=== PATIENT | male | born 1965 | race Caucasian/White ===

== ENCOUNTER 2018-08-09 00:13 | Observation (INO) | payer SELFPAY ==
[2018-08-09] MEDS ORDERED: NS 1,000 ML IV ONE ×2 (00:24→01:22)
--- NOTE | 2018-08-09 00:24 | EDPHY ---
H & P Stated Complaint: lower back pain since AM, chest pain Time Seen by Provider: 08/09/18 00:24 HPI/ROS: HPI CHIEF COMPLAINT: Low back pain. HISTORY OF PRESENT ILLNESS: Patient is a 52-year-old male, history of lymphoma currently undergoing treatment in [place]. He lives in [place]. He last got chemotherapy on Thursday. He flew to [place] on . He is here on a ski trip with his son. There skiing up and when her park. Earlier this morning he developed low back pain the pain is gotten worse he describes it low back inside. Not worse with movement. He describes pain across both the CVA regions and his low back. No midline back pain. Patient denies fever. Denies vomiting. Does endorse some chest tightness. He states that is been normal for him since chemotherapy. He denies vomiting. Patient denies diarrhea. Patient denies any significant abdominal pain. His main complaint is low back pain. Past Medical History: Lymphoma on chemotherapy Past Surgical History: No recent surgery. History of knee surgeries. Social History: Resides in [place]. Getting chemotherapy at [place] Family History: Noncontributory ROS REVIEW OF SYSTEMS: 10 Systems were reviewed and negative with the exception of the elements mentioned in the history of present illness. Exam Constitutional flushed appearing, otherwise nontoxic, somewhat pale, triage nursing summary reviewed, vital signs reviewed, awake/alert. Eyes normal conjunctivae and sclera, EOMI, PERRLA. HENT normal inspection, atraumatic, moist mucus membranes, no epistaxis, neck supple/ no meningismus, no raccoon eyes. Respiratory clear to auscultation bilaterally, normal breath sounds, no respiratory distress, no wheezing. Cardiovascular rate normal, regular rhythm, no murmur, no edema, distal pulses normal. Gastrointestinal soft, non-tender, no rebound, no guarding, normal bowel sounds, no distension, no pulsatile mass. Genitourinary bilateral CVA tenderness on exam. Musculoskeletal no midline vertebral tenderness, full range of motion, no calf swelling, no tenderness of extremities, no meningismus, good pulses, neurovascularly intact. Skin pink, warm, & dry, no rash, skin atraumatic. Neurologic awake, alert and oriented x 3, AAOx3, moves all 4 extremities equally, motor intact, sensory intact, CN II-XII intact, normal cerebellar, normal vision, normal speech. Psychiatric normal mood/affect. Heme/Lymph/Immune no lymphadenopathy. Differential Diagnosis: Differential diagnosis includes but is not limited to and in no particular order: Bowel obstruction, appendicitis, gallbladder disease, diverticulitis, colitis, enteritis, perforated viscus, gastritis, GERD , esophagitis, urinary tract infection, pyelonephritis, kidney stones, Differential diagnosis includes but is not limited to: ACS, atypical chest pain , pneumothorax, pneumonia, pulmonary embolism, aortic dissection, congestive heart failure, tumor, musculoskeletal pain, esophageal pain, GERD, peptic ulcer disease, pancreatitis Medical Decision Making: Plan for this patient IV establishment IV fluid bolus , IV Dilaudid 1 mg for pain control, basic blood work, CT scan abdomen pelvis with IV contrast, check UA. Re-evaluation: EKG interpretation by me on record in [facility] [employer] system. Impression time of EKG 0029, sinus rhythm rate of 89, no signs of acute ischemia. Patient's back exam unremarkable. Mild CVA tenderness bilaterally, however no midline back pain. No fever. No saddle anesthesia, no signs of cauda equina, no leg weakness. Troponin 0.00 CT scan abdomen pelvis with IV contrast faxed to me by [facility] negative for acute abdominal pathology. Nothing explained the patient's back pain. Labs are reassuring. Urinalysis unremarkable Plan for hospital admission for observation overnight given his lymphoma, [place] from [place], had ongoing back pain. Patient agrees for admission Dr. Palacios accepts. Source: Patient - Personal History Current Tetanus/Diphtheria Vaccine: Unsure - Medical/Surgical History Hx Asthma: No Hx Chronic Respiratory Disease: No Hx Diabetes: No Hx Cardiac Disease: No Hx Renal Disease: No Hx Cirrhosis: No Hx Alcoholism: No Hx HIV/AIDS: No Hx Splenectomy or Spleen Trauma: No Other PMH: hodgkins lymphoma, ABVD tx in [place] - Social History Smoking Status: Never smoked Constitutional: Initial Vital Signs Temperature (C) 36.8 C 08/09/18 00:15 Heart Rate 100 08/09/18 00:15 Respiratory Rate 20 08/09/18 00:15 Blood Pressure 146/94 H 08/09/18 00:15 O2 Sat (%) 94 08/09/18 00:15 O2 Delivery Mode Room Air O2 (L/minute) 2 Allergies/Adverse Reactions: No Known Allergies Allergy (Verified 08/09/18 08:55) Home Medications: Medication Instructions Recorded Aspirin [Aspirin 81mg (*)] 81 mg PO DAILY 08/09/18 Metoclopramide [Reglan 10 mg tab 10 mg PO BID PRN 08/09/18 (*)] Polyethylene Glycol 3350 [Miralax 17 gm PO DAILY PRN #30 pkt 08/09/18 17 gm (*)] Tears/Dextran 70/Hypromellose 1 drop EACHEYE Q2 PRN 08/09/18 [Natural Balance Tears (*)] Medical Decision Making - Data Points Laboratory Results: Laboratory Results 08/09/18 00:30 08/09/18 00:30 Medications Given: Discontinued Medications Hydrocodone Bitart/Acetaminophen (Lockhart 5/325) 1 - 2 tab PO Q4HRS PRN PRN Reason: Pain, Moderate Able to Take PO Stop: 08/19/18 03:42 Last Admin: 08/09/18 05:23 Dose: 1 tab Hydromorphone HCl (Dilaudid) 1 mg IVP EDNOW ONE Stop: 08/09/18 00:38 Last Admin: 08/09/18 00:43 Dose: 1 mg Hydromorphone HCl (Dilaudid) 1 mg IVP EDNOW ONE Stop: 08/09/18 02:52 Last Admin: 08/09/18 02:55 Dose: 1 mg Sodium Chloride (Ns) 1,000 mls @ 0 mls/hr IV EDNOW ONE; Wide Open PRN Reason: Protocol Stop: 08/09/18 00:25 Last Admin: 08/09/18 00:41 Dose: 1,000 mls Sodium Chloride (Ns) 1,000 mls @ 0 mls/hr IV ONCE ONE PRN Reason: Wide Open Stop: 08/09/18 01:23 Last Admin: 08/09/18 01:38 Dose: 1,000 mls Sodium Chloride (Ns) 1,000 mls @ 100 mls/hr IV CONT GUDELIA Stop: 08/09/18 13:59 Last Admin: 08/09/18 04:28 Dose: 1,000 mls Lactulose (Cephulac) 20 gm PO TID PRN; Protocol PRN Reason: Constipation Stop: 02/05/19 05:43 Last Admin: 08/09/18 11:55 Dose: 20 gm Senna/Docusate Sodium (Senokot-S) 1 - 2 tab PO BID GUDELIA PRN Reason: Protocol Stop: 02/05/19 08:59 Last Admin: 08/09/18 11:56 Dose: 2 tab Point of Care Test Results: Chemistry 08/09/18 00:37 POC Troponin I 0.00 ng/mL ng/mL (0.00-0.08) Departure - Departure Disposition: [facility] Inpatient Acute Clinical Impression: Back pain Qualifiers: Back pain location: low back pain Chronicity: acute Back pain laterality: bilateral Sciatica presence: without sciatica Qualified Code(s): M54.5 - Low back pain Lymphoma Qualifiers: Lymphoma type: unspecified type Lymphoma site: unspecified region Qualified Code(s): C85.90 - Non-Hodgkin lymphoma, unspecified, unspecified site Condition: Fair
[2018-08-09] MEDS ORDERED: HYDROmorphONE/DILAUDID 2 MG/ML INJ IVP ONE ×2 (00:37→02:51)
[2018-08-09] MEDS ORDERED: IOHEXOL 300 mgI/ML (OMNIPAQUE) 150 ML BTL IV ONE (00:41)
[2018-08-09 00:53] LABS: INR 0.91 (0.83-1.16); PROTIME(PATIENT) 12.5 SEC (12.0-15.0)
[2018-08-09 01:06] LABS: PLATELET COUNT 139 10^3/uL (150-400)
[2018-08-09] MEDS ORDERED: ACETAMINOPHEN 325 MG TAB PO PRN (03:43)
[2018-08-09] MEDS ORDERED: ONDANSETRON 4 MG/2 ML VIAL IVP PRN (03:43)
[2018-08-09] MEDS ORDERED: HYDROCODONE/APAP 5/325 TAB PO PRN (03:43)
[2018-08-09] MEDS ORDERED: LORazepam 0.5 MG TAB PO PRN (03:43)
[2018-08-09] MEDS ORDERED: ONDANSETRON DISINTEGRATING 4 MG TAB PO PRN (03:43)
[2018-08-09] MEDS ORDERED: NS 1,000 ML IV SCH (04:00)
[2018-08-09] MEDS ORDERED: BISACODYL 10 MG SUPP PR PRN (05:44)
[2018-08-09] MEDS ORDERED: MAGNESIUM HYDROXIDE 30 ML UDCUP PO PRN (05:44)
[2018-08-09] MEDS ORDERED: MAG HYDROX/AL HYDROX/SIMETH 30 ML UDCUP PO PRN (05:44)
[2018-08-09] MEDS ORDERED: POLYETHYLENE GLYCOL 3350 17 GM PKT PO PRN (05:44)
[2018-08-09] MEDS: LACTULOSE 20 GM/30 ML UDCUP PO PRN ×2 (06:03→11:55)
--- NOTE | 2018-08-09 08:12 | PDGENHP ---
History and Physical - Chief Complaint The left limb pain, lower abdominal pain - History of Present Illness Source-patient provides history appears reliable. EMR was reviewed and case discussed with ED provider. HPI - is a very pleasant 52-year-old gentleman from [place] with a past medical history significant for lymphoma currently on chemotherapy last received 6 days ago who is traveling to [place] for ski trip with his family. Patient presented to the emergency department with complaints of severe and intractable CVA discomfort in the lumbar region. Patient also notes significant constipation with abdominal distension. His last bowel movement was 2 days ago. Patient reports that this is typical experience following chemotherapy. Patient has not taken any nnoq-gya-fzpqhav laxatives since leaving [place]. He denies any nausea vomiting. He does report a little left lower abdomen discomfort but not pain with some radiation down to his groin. Patient received pain medications in the emergency department and since that time patient reports that the groin and abdominal pain has resolved but he continues to have some mild low back CVA discomfort which he describes as internal. No previous history of kidney stones. No dysuria hematuria. Denies any fevers or chills. He has chronic chest discomfort worse with movement which he has had since starting chemotherapy. History Information - Allergies/Home Medication List Allergies/Adverse Reactions: No Known Allergies Allergy (Unverified 08/09/18 00:18) Home Medications: Lonquex 08/09/18 [Last Taken Unknown] Metoclopramide HCl 08/09/18 [Last Taken Unknown] I have personally reviewed and updated: family history, medical history, social history, surgical history - Past Medical History Additional medical history: Lymphoma - Surgical History Additional surgical history: Bilateral knee surgery - Family History Additional family history: Mother with history of Parkinson's living in her 80s. - Social History Smoking Status: Never smoked Alcohol Use: None Drug Use: None Additional social history: Patient is from [place]. He is here on a ski trip with his son who is also looking at the [employer]. 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 Cor status-full. Review of Systems Review of Systems: ROS: 10pt was reviewed & negative except for what was stated in HPI & below ( See HPI) Physical Exam Physical Exam: Selected Entries 08/09/18 00:15 Blood Pressure Automatic Method Heart Rate 100 Respiratory 20 Rate O2 Sat (%) 94 Temperature (C) 36.8 C Blood Pressure 146/94 H Mean Arterial 111 H Pressure (MAP) O2 Delivery Room Air Mode Temperature Oral Source Temp Pulse Resp BP Pulse Ox 37.3 C 91 18 136/87 H 93 08/09/18 07:59 08/09/18 07:59 08/09/18 07:59 08/09/18 07:59 08/09/18 07:59 O2 (L/minute) 2 Constitutional: no apparent distress, other (NAD. Pleasant adult gentleman is standing in his room.) Eyes: PERRL (Decreased reactivity light bilaterally but symmetric.), anicteric sclera, EOMI, No scleral injection Ears, Nose, Mouth, Throat: dry mucous membranes, other (No nasal discharge.), No poor dentition Cardiovascular: regular rate and rhythym, no murmur, rub, or gallop, No edema Peripheral Pulses: 2+: dorsalis-pedis (R), dorsalis-pedis (L) Respiratory: no respiratory distress, no rales or rhonchi, clear to auscultation , No expiratory wheeze, No inspiratory crackles Gastrointestinal: soft, non-tender abdomen, no palpable masses, distension ( Abdomen is soft but full), other (Hypoactive bowel sounds), No guarding, No rebound Genitourinary: no bladder tenderness, other (No CVA tenderness), No figueroa in urethra Skin: warm, normal color, no rashes or abrasions Musculoskeletal: full muscle strength, other (Patient ambulates independently moves all extremities. Strength grossly normal.), No generalized weakness Neurologic: AAOx3, sensation intact bilaterally, other (Grossly nonfocal exam.) , No facial droop Psychiatric: interacting appropriately, not anxious, not encephalopathic, thought process linear Lab Data & Imaging Review 08/09/18 00:30 08/09/18 00:30 WBC 3.95 10^3/uL (3.80-9.50) 08/09/18 00:30 RBC 3.66 10^6/uL (4.40-6.38) L 08/09/18 00:30 Hgb 11.4 g/dL (13.7-17.5) L 08/09/18 00:30 Hct 34.4 % (40.0-51.0) L 08/09/18 00:30 MCV 94.0 fL (81.5-99.8) 08/09/18 00:30 MCH 31.1 pg (27.9-34.1) 08/09/18 00:30 MCHC 33.1 g/dL (32.4-36.7) 08/09/18 00:30 RDW 14.8 % (11.5-15.2) 08/09/18 00:30 Plt Count 139 10^3/uL (150-400) L 08/09/18 00:30 MPV 12.0 fL (8.7-11.7) H 08/09/18 00:30 Neut % (Auto) Not Reported 08/09/18 00:30 Lymph % (Auto) Not Reported 08/09/18 00:30 Hamblen % (Auto) Not Reported 08/09/18 00:30 Eos % (Auto) Not Reported 08/09/18 00:30 Baso % (Auto) Not Reported 08/09/18 00:30 Nucleat RBC Rel Count Not Reported 08/09/18 00:30 Absolute Neuts (auto) Not Reported 08/09/18 00:30 Absolute Lymphs (auto) Not Reported 08/09/18 00:30 Absolute Monos (auto) Not Reported 08/09/18 00:30 Absolute Eos (auto) Not Reported 08/09/18 00:30 Absolute Basos (auto) Not Reported 08/09/18 00:30 Absolute Nucleated RBC Not Reported 08/09/18 00:30 Immature Gran % Not Reported 08/09/18 00:30 Seg Neutrophils % 26.5 % 08/09/18 00:30 Band Neutrophils % 13.3 % 08/09/18 00:30 Lymphocytes % 34.7 % 08/09/18 00:30 Monocytes % 16.3 % 08/09/18 00:30 Eosinophils % 2.0 % 08/09/18 00:30 Basophils % 3.1 % 08/09/18 00:30 Metamyelocytes % 3.1 % 08/09/18 00:30 Myelocytes % 1.0 % 08/09/18 00:30 Promyelocytes % 0.0 % 08/09/18 00:30 Blast Cells % 0.0 % 08/09/18 00:30 Immature Gran # Not Reported 08/09/18 00:30 Absolute Seg Neuts 1.05 10^3/uL (1.70-6.50) L 08/09/18 00:30 Absolute Band Neuts 0.53 10^3/uL (0.00-0.70) 08/09/18 00:30 Absolute Lymphocytes 1.37 10^3/uL (1.00-3.00) 08/09/18 00:30 Absolute Monocytes 0.64 10^3/uL (0.30-0.80) 08/09/18 00:30 Absolute Eosinophils 0.08 10^3/uL (0.03-0.40) 08/09/18 00:30 Absolute Basophils 0.12 10^3/uL (0.02-0.10) H 08/09/18 00:30 Absolute Metamyelocyte 0.12 10^3/mL (0.00-0.00) H 08/09/18 00:30 Absolute Myelocytes 0.04 10^3/mL (0.00-0.00) H 08/09/18 00:30 Absolute Promyelocytes 0.00 10^3/uL (0.00-0.00) 08/09/18 00:30 Absolute Plasma Cells 0.00 10^3/uL (0.00-0.00) 08/09/18 00:30 Nucleated RBCs 0 /100 WBC (0-0) 08/09/18 00:30 Atypical Lymphocytes 1+ H 08/09/18 00:30 Absolute Blast Cells 0.00 10^3/uL (0.00-0.00) 08/09/18 00:30 Plasma Cells % 0.0 % 08/09/18 00:30 Platelet Estimate DECREASED (ADEQ) L 08/09/18 00:30 Elliptocytes 1+ H 08/09/18 00:30 Schistocytes 1+ H 08/09/18 00:30 PT 12.5 SEC (12.0-15.0) 08/09/18 00:30 INR 0.91 (0.83-1.16) 08/09/18 00:30 APTT 24.0 SEC (23.0-38.0) 08/09/18 00:30 VBG Lactic Acid 1.0 mmol/L (0.7-2.1) 08/09/18 01:05 Sodium 141 mEq/L (135-145) 08/09/18 00:30 Potassium 3.6 mEq/L (3.5-5.2) 08/09/18 00:30 Chloride 111 mEq/L (97-110) H 08/09/18 00:30 Carbon Dioxide 27 mEq/l (22-31) 08/09/18 00:30 Anion Gap 3 mEq/L (6-14) L 08/09/18 00:30 BUN 22 mg/dL (7-23) 08/09/18 00:30 Creatinine 0.9 mg/dL (0.7-1.3) 08/09/18 00:30 Estimated GFR > 60 08/09/18 00:30 Glucose 96 mg/dL (70-100) 08/09/18 00:30 Calcium 8.9 mg/dL (8.5-10.4) 08/09/18 00:30 Magnesium 1.8 mg/dL (1.6-2.3) 08/09/18 00:30 Total Bilirubin 1.0 mg/dL (0.1-1.4) 08/09/18 00:30 Conjugated Bilirubin 0.3 mg/dL (0.0-0.5) 08/09/18 00:30 Unconjugated Bilirubin 0.7 mg/dL (0.0-1.1) 08/09/18 00:30 AST 22 IU/L (17-59) 08/09/18 00:30 ALT 28 IU/L (21-72) 08/09/18 00:30 Alkaline Phosphatase 67 IU/L (38-126) 08/09/18 00:30 POC Troponin I 0.00 ng/mL (0.00-0.08) 08/09/18 00:37 NT-Pro-B Natriuret Pep 100 pg/mL (0-125) 08/09/18 00:30 Total Protein 6.3 g/dL (6.3-8.2) 08/09/18 00:30 Albumin 3.8 g/dL (3.5-5.0) 08/09/18 00:30 Lipase 90 IU/L (23-300) 08/09/18 00:30 Urine Color YELLOW 08/09/18 01:40 Urine Appearance CLEAR 08/09/18 01:40 Urine pH 7.0 (5.0-7.5) 08/09/18 01:40 Ur Specific Hurricane > 1.035 (1.002-1.030) H 08/09/18 01:40 Urine Protein NEGATIVE (NEGATIVE) 08/09/18 01:40 Urine Ketones NEGATIVE (NEGATIVE) 08/09/18 01:40 Urine Blood NEGATIVE (NEGATIVE) 08/09/18 01:40 Urine Nitrate NEGATIVE (NEGATIVE) 08/09/18 01:40 Urine Bilirubin NEGATIVE (NEGATIVE) 08/09/18 01:40 Urine Urobilinogen 2.0 EU (0.2-1.0) H 08/09/18 01:40 Ur Leukocyte Esterase NEGATIVE (NEGATIVE) 08/09/18 01:40 Urine Glucose NEGATIVE (NEGATIVE) 08/09/18 01:40 Imaging Review: CT Abdomen and Pelvis With Contrast History: Low back pain.. History of lymphoma. Comparison: None available. Technique: Axial contrast-enhanced images were obtained through the abdomen and pelvis following the uneventful administration of 90 mL Omnipaque 300 intravenous contrast. Dose reduction techniques were utilized. Findings: Abdomen: Mild basilar atelectasis is present. Heart size is normal. There is trace pericardial fluid. The liver, gallbladder, spleen, pancreas, adrenals, and kidneys are normal. Moderate stool is present throughout the colon. The colon and small bowel are normal caliber without evidence of obstruction. The appendix is normal. There is no free fluid or air. The aorta is normal caliber . The IVC, hepatic, portal, splenic, and superior mesenteric veins are patent. No pathologically enlarged lymph nodes are identified. Degenerative change is present in the spine. Pelvis: The bladder is normal. A small fat-containing left inguinal hernia is present. No aggressive osseous lesions are identified. Impression: 1. Moderate stool in the colon. 2. Additional findings as above. A preliminary report was provided by [facility] at 210 hours. The final interpretation is concordant. Portable Chest at 0031 hours History: Chest Pain. Comparison: None available. Findings: Lung volumes are low. The view is apical lordotic. Right chest port tip is at the cavoatrial junction. Mild basilar atelectasis/scarring is present, without focal consolidation, pneumothorax, or pleural effusion. Mild cardiomegaly is likely exaggerated by hypoventilatory portable technique. Degenerative change is present in the spine. Impression: Mild cardiomegaly. Visualized and Interpreted Chest x-ray results: Yes Chest X-Ray results: no infiltrate EKG additional interpertation: EKG reviewed myself. NSR in the 80s. QTC 441. Q -wave in lead 3. Nonspecific T-wave changes in inferior leads. No acute ST changes. Assessment & Plan Assessment: Pleasant 52-year-old gentleman with history of lymphoma undergoing chemotherapy visiting from [place] who presents to the ED with complaints of low back pain #Back pain (Acute) - CT abdomen pelvis negative for any bony abnormalities. Patient's pain he describes is not superficial or soft tissue in feels more internal. He is also been complaining of some constipation for last several days and is a little distended and full on palpation. Moderate stools noted on CT scan. Bowel program has been ordered. Discussed with the patient risks benefits of continuing narcotic therapy in the setting of constipation he acknowledges understanding and amenable to initiation of bowel protocol.. #Lymphoma (Acute) - patient is status post dose of filgrastim following his chemotherapy. On H&H and platelets are minimally at decreased. WBCs in the lower limits of normal. FEN - status post multiple L of IV fluid in the emergency department. Encourage oral hydration at this time. Patient does still appear little bit dry. Diet as tolerated. PPX-SCDs. Holding anticoagulation in setting of pancytopenia. Additionally patient is mobilizing easily and anticipate short hospital stay. Patient is a moderate risk for DVT. Cor status-full Disposition-patient admitted observation status on [facility] floor for continued pain control treatment of constipation to see if this was resolved his back pain. Reviewed with the patient is laboratory studies and imaging findings consisting with with constipation.
[2018-08-09] MEDS ORDERED: SENNOSIDES/DOCUSATE SODIUM TAB PO SCH (09:00)
[2018-08-09] MEDS ORDERED: ENOXAPARIN 40 MG/0.4 ML SYR SC SCH (09:00)
--- NOTE | 2018-08-09 09:23 | ASMTCMCOM ---
CM Note CM Note Notes: Chart reviewed for discharge purposes. 52 year old male with history of lymphoma admitted via ED for c/o of abdominal pain. From [place] and is currently on a ski trip with family. No current needs identified. CM available should needs arise. Plan: Dc independently when medically cleared for discharge. Date Signed: 08/09/2018 09:22 AM Electronically Signed By:Matilda Skinner RN
[2018-08-09 15:59] VITALS: BP 141/92
--- NOTE | 2018-08-09 16:31 | ASMTLACE ---
LACE Length of stay for Answers: Less than 1 day current admission Comorbidities - select Answers: Any tumor (including all that apply lymphoma or leukemia) # of Emergency department Answers: 1-2 visits in the last 6 months Score: 3 Date Signed: 08/09/2018 04:30 PM Electronically Signed By:Matilda Skinner RN
--- NOTE | 2018-08-09 16:32 | ASMTDCNOTE ---
Case Management Discharge Discharge Order Complete? Answers: Yes Patient to Obtain Answers: Independently Medications Transportation Arranged Answers: Other Family Notified Answers: Yes Discharge Comments Notes: Medically cleared for dishcarge to home no current needs identified. Date Signed: 08/09/2018 04:31 PM Electronically Signed By:Matilda Skinner RN
--- NOTE | 2018-08-09 16:46 | GDS ---
[f rep st] DISCHARGE SUMMARY HISTORY OF PRESENT ILLNESS: A 52-year-old man visiting from [place] with history of lymphoma, last ch emo 6 days ago. He is here traveling with his son to visit . He presented to the ER with complain ts of severe intractable discomfort in the lumbar region. He notes significant constipation with abd ominal distention. Last bowel movement was 2 days ago. This is typical after receiving chemotherapy . He is not taking any cacx-dsx-rkimjqs laxative. Denies any nausea, vomiting. No fevers. No dysu ale. No weakness, bowel or bladder incontinence. HOSPITAL COURSE BY PROBLEM: 1. Lumbar back pain: Suspect this is due to significant constipation as seen on abdominal CT. No e vidence of infection. Pain is resolved after having a bowel movement. Recommend plenty of fluids an d MiraLax. 2. Lymphoma: Recent chemotherapy. Follow up with his oncologist in [place]. 3. Chemo related anemia/thrombocytopenia: Hemoglobin and hematocrit are stable. No indication for transfusion. DISPOSITION: Patient is stable for discharge home. NEW MEDICATIONS: MiraLax daily. PHYSICAL EXAMINATION: VITAL SIGNS: Temperature 37.3, blood pressure 141/92, heart rate in the 90s, respirations 18, 92% on room. GENERAL: In no acute distress. HEENT: PERRLA. Moist mucous membran es. CV: Regular rate and rhythm. LUNGS: Clear. ABDOMEN: Soft, nontender. Mildly distended. Po sitive bowel sounds. : No Kirkpatrick. MUSCULOSKELETAL: No tenderness over spine. No paraspinal tend erness either. NEURO: 2 through 12 intact. PSYCH: Alert and oriented x3. Normal sensation to burke ch. Ambulating without issue. TIME SPENT ON DISCHARGE: Greater than 30 minutes coordinating discharge and counseling patient on fl uids and laxatives. /[id number]/MODL
--- NOTE | 2018-08-10 08:16 | CPEKG ---
Test Reason : OPEN Blood Pressure : / mmHG Vent. Rate : 089 BPM Atrial Rate : 089 BPM P-R Int : 153 ms QRS Dur : 092 ms QT Int : 362 ms P-R-T Axes : 062 005 007 degrees QTc Int : 441 ms Sinus rhythm Low voltage, precordial leads Confirmed by Shankar Arita ([id number]) on 08/10/2018 8:15:54 AM Referred By: Shankar Arita Confirmed By:Shankar Arita
== END 2018-08-09 16:39 | disposition home or self-care (01) ==
LOC: F1N 04:51
PROVIDERS: ADMIT Family Medicine; ATTEND Family Medicine
DX: M54.5 Low back pain (principal); C85.90 Non-Hodgkin lymphoma, unspecified, unspecified site; D63.0 Anemia in neoplastic disease; D69.6 Thrombocytopenia, unspecified
CPT/HCPCS: 84484-ER; 96374; G0378; J1170; Q9967